=== PATIENT | male | born 1990 | race Caucasian/White ===

== ENCOUNTER 2020-06-18 05:09 | Emergency (ER) | payer MEDICAID ==
[~2020-06-18] VITALS: Ht 167.6 cm; Wt 109.0 kg
[2020-06-18 05:33] VITALS: BP 123/97
[2020-06-18] MEDS ORDERED: KETOROLAC 30MG/ML VIAL IV STA (06:12)
[2020-06-18] MEDS ORDERED: ONDANSETRON HCL 4MG/2ML INJ IV STA (06:12)
[2020-06-18 07:01] LABS: CLARITY URINE CLEAR (CLEAR); COLOR URINE YELLOW (YELLOW); KETONES URINE NEGATIVE (NEGATIVE); LEUKOCYTE ESTERASE URINE TRACE (NEGATIVE); NITRITE URINE NEGATIVE (NEGATIVE); OCCULT BLOOD URINE NEGATIVE (NEGATIVE); PROTEIN URINE NEGATIVE (NEGATIVE); SPECIFIC GRAVITY URINE 1.022 (1.005-1.030); UROBILINOGEN URINE 0.2 E.U./dL (0.2-1.0)
== END 2020-06-18 06:19 | disposition left against medical advice (07) ==
LOC: ER 05:09
DX: R10.9 Unspecified abdominal pain (principal); F17.200 Nicotine dependence, unspecified, uncomplicated
CPT/HCPCS: 81003; 99283

== ENCOUNTER 2021-05-26 09:12 | Emergency (ER) | payer MEDICARE, MEDICAID ==
[~2021-05-26] VITALS: Ht 165.1 cm; Wt 89.0 kg
[2021-05-26 09:28] VITALS: BP 118/62
[2021-05-26] MEDS ORDERED: TETANUS, DIPHTHERIA, PERTUSSIS VAC/PF 0.5ML (>7YR OLD) IM ONE (11:30)
== END 2021-05-26 12:22 | disposition home or self-care (01) ==
LOC: ER 09:12
DX: M70.22 Olecranon bursitis, left elbow (principal); X58.XXXA Exposure to other specified factors, initial encounter; Y93.89 Activity, other specified; Y92.89 Other specified places as the place of occurrence of the external cause
CPT/HCPCS: 90471; 90715; 99283; A4565